=== PATIENT | male | born 1965 | race Caucasian/White ===

== ENCOUNTER → 2023-09-11 09:50 | Outpatient (BNVA) | payer MEDICARE, SELFPAY | PROVIDERS: Visit Provider Nurse Practitioner Family | DX: R60.0 Localized edema (principal); R63.5 Abnormal weight gain; R03.0 Elevated blood-pressure reading, without diagnosis of hypertension; Z79.899 Other long term (current) drug therapy | CPT/HCPCS: 80053; 83880; 84443; 85025 ==

== ENCOUNTER → 2023-12-16 11:35 | Outpatient (BNVA) | payer MEDICARE, SELFPAY | PROVIDERS: PCP Nurse Practitioner; Visit Provider Nurse Practitioner | DX: E03.9 Hypothyroidism, unspecified (principal) | CPT/HCPCS: 84443 ==

== ENCOUNTER → 2024-01-13 10:14 | Outpatient (BNVA) | payer MEDICARE, SELFPAY | PROVIDERS: PCP Nurse Practitioner; Visit Provider Nurse Practitioner | DX: M79.673 Pain in unspecified foot (principal); E03.9 Hypothyroidism, unspecified | CPT/HCPCS: 84443; 84550 ==

== ENCOUNTER → 2024-02-11 09:23 | Outpatient (BNVA) | payer MEDICARE, SELFPAY | PROVIDERS: Visit Provider Podiatrist Foot & Ankle Surgery | DX: M79.671 Pain in right foot (principal); M79.672 Pain in left foot; M65.971 Unspecified synovitis and tenosynovitis, right ankle and foot; M65.972 Unspecified synovitis and tenosynovitis, left ankle and foot | CPT/HCPCS: 73630; 99203 ==